=== PATIENT | male | born 1975 ===

== ENCOUNTER 2018-10-05 22:25 | Emergency (ER) | payer OTHER ==
[2018-10-05 22:37] VITALS: RESP 20; O2SAT 100
[2018-10-05] MEDS ORDERED: Sodium Chloride 0.9% 1,000 ML ONE (22:37)
[2018-10-05] MEDS ORDERED: Morphine 4 MG/ML VIAL ONE (22:41)
--- NOTE | 2018-10-05 22:45 | C.PDOC ---
History Of Present Illness 42 year old male presents to the ED for evaluation of right upper quadrant abdominal pain which began around 3-4 hours prior to arrival. Patient reports nausea, stating he wants to vomit but is unable to. Patient denies fever, chills , flank pain, dysuria, hematuria, or diarrhea. Time Seen by Provider: 10/05/18 22:34 Chief Complaint (Nursing): Abdominal Pain History Per: Patient History/Exam Limitations: no limitations Onset/Duration Of Symptoms: Hrs (3-4) Current Symptoms Are (Timing): Still Present Location Of Pain/Discomfort: RUQ Radiation Of Pain To:: None Quality Of Discomfort: "Pain" Associated Symptoms: Nausea. denies: Fever, Chills, Vomiting, Diarrhea, Urinary Symptoms Additional History Per: Patient Past Medical History Reviewed: Historical Data, Nursing Documentation, Vital Signs Vital Signs: Last Vital Signs Temp Pulse 63 10/05/18 22:33 Resp 20 10/05/18 22:33 BP 114/73 10/05/18 22:33 Pulse Ox 100 10/05/18 22:33 - Medical History PMH: Kidney Stones Surgical History: No Surg Hx Family History: States: Unknown Family Hx - Social History Hx Tobacco Use: No Hx Alcohol Use: Yes Hx Substance Use: No Review Of Systems Constitutional: Negative for: Fever, Chills Gastrointestinal: Positive for: Nausea, Abdominal Pain (right upper quadrant ). Negative for: Vomiting, Diarrhea Genitourinary: Negative for: Dysuria, Hematuria Physical Exam - Physical Exam Appears: Non-toxic, Other (writhing in painful distress ) Skin: Normal Color, Warm, Dry Head: Atraumatic, Normacephalic Eye(s): bilateral: Normal Inspection Oral Mucosa: Moist Neck: Supple Chest: Symmetrical, No Deformity, No Tenderness Cardiovascular: Rhythm Regular, No Murmur Respiratory: Normal Breath Sounds, No Rales, No Rhonchi, No Wheezing Gastrointestinal/Abdominal: Soft, Tenderness (right upper quadrant ), No Guarding, No Rebound Back: No Other (flank tenderness, bilaterally ) Extremity: Normal ROM, Capillary Refill (less than 2 seconds ) Neurological/Psych: Oriented x3, Normal Speech, Normal Cognition ED Course And Treatment - Laboratory Results Result Diagrams: 10/05/18 22:46 10/05/18 22:46 O2 Sat by Pulse Oximetry: 100 (on RA ) Pulse Ox Interpretation: Normal - CT Scan/US CT A/P Other Rad Studies (CT/US): Read By Radiologist, Radiology Report Reviewed CT/US Interpretation: CT SCAN OF THE ABDOMEN AND PELVIS WITHOUT ORAL OR IV CONTRAST. CLINICAL INDICATION: Right flank pain. TECHNIQUE: Axial and reformatted sagittal and coronal images of the abdomen pelvis obtained without IV contrast administration. COMPARISON: None. FINDINGS: Bilateral basilar subsegmental atelectatic pulmonary changes. Normal unenhanced liver. Normal gallbladder and extrahepatic biliary system. Normal unenhanced spleen. Normal pancreas. . Normal bilateral adrenal glands. Normal size of the right kidney. There is no right renal mass. There are no right renal calculi. There is no right hydronephrosis. Normal visualized right ureter. Normal size of the left kidney. There is no left renal mass. 3 mm left renal nonobstructing stone. There is no left hydronephrosis. Normal visualized left ureter. Surgical changes of the stomach. Diffuse thickening of the second portion of the duodenum with associated surrounding free fluid tracking to the right retroperitoneal space. Normal small intestine. Uncomplicated diverticulosis of the colon. The appendix is visualized and appears normal. There is no demonstrated peritoneal fluid. Normal abdominal aorta. Normal inferior vena cava. Normal retroperitoneum. . Normal urinary bladder. There is no pelvic mass lesion or lymphadenopathy. There is no pelvic fluid. Mild prostatomegaly. Benign chronic prostatic calcifications. . Fat containing umbilical hernia without incarceration. Normal osseous structures. IMPRESSION: Diffuse thickening of the second portion of the duodenum with surrounding inflammatory fat stranding and free fluid. Findings can be secondary to duodenitis and/or peptic ulcer disease. No perforation or pneumatosis intestinalis. No abscess formation. Medical Decision Making Medical Decision Making: Impression: 42 year old male with right upper quadrant pain, nausea Plan: * bloodwork * urinalysis * Morphine IVP * Zofran IVP * CT A/P * reassess and disposition Progress: Bloodwork and urinalysis ordered and reviewed. Morphine IVP and Zofran IVP given. 0206- Patient re-evaluated. Sleeping comfortably, in no distress, no longer writhing in pain. Findings discussed with patient. GI cocktail ordered. Will discharge patient with Rx for Pepcid. Advised outpatient followup, or returning to the ED for any new or worsening symptoms. Disposition - Disposition Disposition: HOME/ ROUTINE Disposition Time: 02:06 Condition: STABLE Additional Instructions: PAT D GALVIN, thank you for letting us take care of you today. Your provider was Rashmi Tinajero MD and you were treated for FLANK PAIN. The emergency medical care you received today was directed at your acute symptoms. If you were prescribed any medication, please fill it and take as directed. It may take several days for your symptoms to resolve. Return to the Emergency Department if your symptoms worsen, do not improve, or if you have any other problems. Please contact your doctor or call one of the physicians/clinics you have been referred to that are listed on the Patient Visit Information form that is included in your discharge packet. Bring any paperwork you were given at discharge with you along with any medications you are taking to your follow up visit. Our treatment cannot replace ongoing medical care by a primary care provider outside of the emergency department. Thank you for allowing the [facility] team to be part of your care today. If you had an X-Ray or CT scan: A Radiologist will review the ED reading if any change in treatment is needed we will contact you. If you had a blood, urine, or wound culture: It will take several days for the results, if any change in treatment is needed we will contact you. If you had an STI test: It will take 48 hours for the results. Please call after 1 week if you have not heard back. Prescriptions: Famotidine [Pepcid] 20 mg PO DAILY #14 tab Instructions: Peptic Ulcers (DC) Forms: [employer] (Lebanese) - Clinical Impression Clinical Impression: Peptic ulcer, Abdominal pain - Scribe Statement The provider has reviewed the documentation as recorded by the Scribe (Pinky Santos) Provider Attestation: All medical record entries made by the Scribe were at my direction and personally dictated by me. I have reviewed the chart and agree that the record accurately reflects my personal performance of the history, physical exam, medical decision making, and the department course for this patient. I have also personally directed, reviewed, and agree with the discharge instructions and d isposition.
[2018-10-05 22:49] LABS: BASO % 0.3 % (0.0-2.0); EOS # 0.1 K/uL (0.0-0.7); EOS % 1.8 % (0.0-4.0); HEMOGLOBIN 10.9 g/dL (12.0-18.0); LYMPH % 37.6 % (20.0-40.0); MEAN CELL VOLUME 70.2 fL (80.0-94.0); MEAN CORPUSCULAR HEMOGLOBIN 22.1 pg (27.0-31.0); MEAN CORPUSCULAR HGB CONC 31.5 g/dL (33.0-37.0); MEAN PLATELET VOLUME 8.5 fL (7.2-11.7); MONO # 0.6 K/uL (0.0-0.8); MONO % 7.8 % (0.0-10.0); NEUT # 4.2 K/uL (1.8-7.0); NEUT % 52.5 % (50.0-75.0); RBC 4.91 Mil/uL (4.40-5.90); RED CELL DISTRIBUTION WIDTH 20.3 % (11.5-14.5); WHITE BLOOD COUNT 8.1 K/uL (4.8-10.8)
[2018-10-05 23:01] LABS: ALB/GLOB RATIO 1.1 (1.0-2.1); ALBUMIN 3.8 g/dL (3.5-5.0); ALT/SGPT 20 U/L (21-72); AST/SGOT 21 U/L (17-59); BLOOD UREA NITROGEN 15 mg/dL (9-20); CALCIUM 8.7 mg/dl (8.6-10.4); GFR NON-AFRICAN AMERICAN > 60; LIPASE 165 U/L (23-300)
[2018-10-05] MEDS ORDERED: Potassium Chloride 20 mEq ER Tab PO ONE ×2 (23:28→23:38)
[2018-10-06 01:38] LABS: URINE BACTERIA RARE (<OCC); URINE BILIRUBIN NEGATIVE (NEGATIVE); URINE BLOOD NEGATIVE (NEGATIVE); URINE CLARITY Clear (Clear); URINE COLOR Yellow (YELLOW); URINE GLUCOSE (UA) NORMAL (Normal); URINE LEUKOCYTE ESTERASE NEG Leu/uL (Negative); URINE PROTEIN 1+ mg/dL (NEGATIVE)
[2018-10-06] MEDS ORDERED: Aluminum Hydroxide/Magnesium Hydroxide Susp (30 mL) PO ONE (02:04)
[2018-10-06 02:07] VITALS: BP 121/70; PULSE 78; TEMP 97.9
[2018-10-06] MEDS ORDERED: Aluminum Hydroxide/Magnesium Hydroxide Susp (30 mL) ONE (02:12)
--- NOTE | 2018-10-06 12:31 | CT ---
Date of service: 10/06/2018 PROCEDURE: CT Abdomen and Pelvis without intravenous contrast HISTORY: r/o kidney stone COMPARISON: Comparison is made to the previous study dated 09/18/2012 TECHNIQUE: Axial and reformatted coronal and sagittal CT images of the abdomen and pelvis were obtained without IV or oral contrast administration.. Contrast dose: 0 Radiation dose: Total exam DLP = 1294.8 mGy-cm. This CT exam was performed using one or more of the following dose reduction techniques: Automated exposure control, adjustment of the mA and/or kV according to patient size, and/or use of iterative reconstruction technique. FINDINGS: LOWER THORAX: Small opacities at the lung bases are noted likely atelectasis. No evidence of significant pleural effusion. The heart is normal in size. LIVER: Mild hepatomegaly is noted. No evidence of acute pathology in the liver. GALLBLADDER AND BILE DUCTS: Unremarkable. PANCREAS: Unremarkable. No gross lesion or ductal dilatation. SPLEEN: Unremarkable. ADRENALS: Unremarkable. No mass. KIDNEYS AND URETERS: There is 2.5 millimeter nonobstructing calculus at the midpole of the left kidney. There is also punctate less than 2 millimeter calculus at the mid to upper pole of the left kidney. No evidence of hydronephrosis or hydroureter. VASCULATURE: Unremarkable. No aortic aneurysm. No aortic atherosclerotic calcification or mural plaque present. BOWEL: Patient is status post prior gastric bypass surgery. There are inflammatory changes and trace fluid adjacent to the descending duodenum which may represent duodenitis or peptic ulcer disease. No evidence of high-grade bowel obstruction. No evidence of abscess formation or discrete drainable fluid collection. Postsurgical changes and bowel anastomosis noted in the left upper abdomen and around the stomach. APPENDIX: No evidence of appendicitis. PERITONEUM: Unremarkable. No free fluid. No free air. LYMPH NODES: Unremarkable. No enlarged lymph nodes. BLADDER: Unremarkable. REPRODUCTIVE: The prostate is mildly enlarged. BONES: No acute fracture. OTHER FINDINGS: None. IMPRESSION: Two nonobstructing left renal calculi. No evidence of hydronephrosis. Inflammatory changes and trace amount of fluid seen in the right upper abdomen adjacent to the duodenum and ricki hepatis region may represent duodenitis or peptic ulcer disease. No evidence of pneumoperitoneum or discrete abscess formation. Preliminary report was submitted by [facility] contains concordant findings.
== END 2018-10-06 02:18 | disposition home or self-care (01) ==
LOC: C.ER 22:25
DX: K27.9 Peptic ulcer, site unspecified, unspecified as acute or chronic, without hemorrhage or perforation (principal); Z87.442 Personal history of urinary calculi
CPT/HCPCS: 74176; 80053; 81001; 83690; 85025; 96374; 96375; 99285; J1885; J2270; J2405